=== PATIENT | female | born 1975 | race Caucasian/White ===

== ENCOUNTER 2018-07-28 16:00 | Observation (INO) ==
[2018-07-28] MEDS ORDERED: ASPIRIN 325 MG TABLET PO STA (16:43)
[2018-07-28] MEDS ORDERED: NITROGLYCERIN 2% OINT 1 INCH/GM PACK TOP STA (16:43)
[2018-07-28 16:50] LABS: Basophils # 0.1 10*3/uL (0.0-0.2); Basophils % 0.8 % (0.0-0.8); Eosinophils # 0.1 10*3/uL (0.0-0.87); Eosinophils % 1.4 % (0.00-10.9); Hematocrit 38.3 VOL% (35.7-47.0); Hemoglobin 13.3 GM/DL (12.0-16.0); Immature Granulocytes % 0.2 %; Immature Granulocytes Absolute 0.02 #; Lymphocytes # 3.7 10*3/uL (1.4-4.0); Lymphocytes % 40.1 % (21.3-54.2); Mean Corpuscular HGB Conc 34.7 GM/DL (32-36); Mean Corpuscular Hemoglobin 31 PG (27-34); Mean Corpuscular Volume 88.7 FL (87-102); Mean Platelet Volume 11.7 FL (9.6-12.0); Monocytes # 0.5 10*3/uL (0.11-0.8); Monocytes % 4.9 % (1.7-12.7); Neutrophils # 4.9 10*3/uL (1.4-7.4); Neutrophils % 52.6 % (38.7-73.9); Platelet Count 293 T/CUMM (130-400); Red Blood Count 4.32 MC/CUMM (3.8-5.5); Red Cell Distribution Width 12.9 % (9.3-17.3); White Blood Count 9.2 T/CUMM (4-12)
[2018-07-28 16:58] LABS: INR 0.9; PT Patient Result 10.3 SECS; Partial Thromboplastin Time 28.7 SECS (0-40)
[2018-07-28 17:08] LABS: Calcium 9.4 MG/DL (8.5-10.1); Osmolality,Calculated 275.1 MOS/KG (273-304)
[2018-07-28 17:26] LABS: Alanine Aminotransferase 23 U/L (13-56); Albumin 4.3 G/DL (3.4-5.0); Alkaline Phosphatase 88 U/L (45-117); Aspartate Amino Transferase 13 U/L (0-37); Bilirubin,Direct < 0.100 MG/DL (0.0-0.20); Bilirubin,Indirect 0.3 MG/DL (0.0-1.0); Bilirubin,Total < 0.39 MG/DL (0.2-1.0); Total Protein 8.5 G/DL (6.4-8.3)
[2018-07-28] MEDS ORDERED: ALPRAZolam 0.5 MG TABLET PO PRN (18:03)
[2018-07-28 18:31] LABS: Apearance,Urine CLEAR (Clear); Bilirubin,Urine Negative (Negative); Blood, Urine Small mg/dL (Negative); Glucose,Urine (UA) Negative (Negative); Hyaline Casts,Urine 1 /LPF (0-3); Ketones,Urine Negative (Negative); Nitrite,Urine Negative (Negative); Protein,Urine Negative; RBC,Urine 2 /HPF (0-4); Squamous Epithelial Cell,Urine Occasional /HPF (0-10); Transitional Epi Cells,Urine Occasional /HPF (<1); Urine Color Yellow (Yellow); Urine Urobilinogen < 2.0 EU/DL (0.2-1.0); WBC,Urine 3 /HPF (0-6)
[2018-07-28 18:35] LABS: Barbiturates Screen,Urine Negative (Negative); Benzodiazepines Screen,Urine Positive (Negative); Cannabinoid Screen,Urine Negative (Negative); Opiate Screen,Urine Negative (Negative); Phencyclidine Screen,Urine Negative (Negative)
[2018-07-28] MEDS ORDERED: INFLUENZA VIRUS VACCINE 0.5 ML SYRINGE IM ONE (19:27)
[2018-07-28] MEDS ORDERED: ONDANSETRON 4 MG/2 ML VIAL IV PRN (19:27)
[2018-07-28] MEDS ORDERED: ACETAMINOPHEN 325 MG TABLET PO PRN (19:27)
[2018-07-28] MEDS ORDERED: LACTULOSE 20 GM/30 ML UDCUP PO PRN (19:27)
[2018-07-28] MEDS: SODIUM CHLORIDE 0.9% 1,000 ML IV SCH (21:53)
[2018-07-28] MEDS: METOPROLOL SUCCINATE XL 25 MG TABLET PO SCH (21:53)
[2018-07-28] MEDS: ENOXAPARIN 40 MG/0.4 ML SYRINGE SUBCUT SCH (21:54)
[2018-07-28] MEDS: PANTOPRAZOLE 40 MG TABLET PO SCH (21:54)
[2018-07-28] MEDS: traZODone 50 MG TABLET PO SCH (21:54)
[2018-07-28] MEDS: POTASSIUM CHLORIDE 20 MEQ TABLET PO SCH (21:54)
[2018-07-29] MEDS: POTASSIUM CHLORIDE 20 MEQ TABLET PO SCH ×2 (02:05→05:10)
[2018-07-29 04:31] LABS: Blood Urea Nitrogen 26 MG/DL (7-18); Calcium 8.6 MG/DL (8.5-10.1); Glucose 100 MG/DL (74-106); Osmolality,Calculated 277.8 MOS/KG (273-304); Sodium 137 MMOL/L (136-145); Troponin I < 0.015 NG/ML (0.00-0.045)
[2018-07-29] MEDS: SODIUM CHLORIDE 0.9% 1,000 ML IV SCH ×3 (07:40→23:50)
[2018-07-29] MEDS ORDERED: POTASSIUM CHLORIDE 20 MEQ TABLET PO PRN (08:16)
[2018-07-29] MEDS ORDERED: TRIAMTERENE/HCTZ 37.5-25 MG TABLET PO SCH (09:00)
[2018-07-29] MEDS ORDERED: METOPROLOL SUCCINATE XL 50 MG TABLET PO SCH (09:00)
[2018-07-29] MEDS ORDERED: FUROSEMIDE 20 MG TABLET PO SCH (09:00)
[2018-07-29] MEDS ORDERED: METOPROLOL SUCCINATE XL 25 MG TABLET PO SCH (09:47)
[2018-07-29] MEDS ORDERED: NICOTINE 21 MG/24 HR PATCH TRANSDERM PRN (09:49)
[2018-07-29] MEDS: TOPIRAMATE 200 MG TABLET PO SCH (10:03)
[2018-07-29] MEDS: ESCITALOPRAM 10 MG TABLET PO SCH (10:03)
[2018-07-29] MEDS: POTASSIUM CHLORIDE 10 MEQ TABLET PO SCH (10:04)
[2018-07-29] MEDS: ASPIRIN CHEW 81 MG TABLET PO SCH (10:04)
[2018-07-29] MEDS: PANTOPRAZOLE 40 MG TABLET PO SCH ×2 (10:04→21:14)
[2018-07-29] MEDS ORDERED: POTASSIUM CHLORIDE 20 MEQ TABLET PO ONE (13:02)
[2018-07-29] MEDS ORDERED: SODIUM CHLORIDE 0.9% 500 ML IV ONE ×2 (15:27→16:30)
[2018-07-29] MEDS: traZODone 50 MG TABLET PO SCH (21:13)
[2018-07-29] MEDS: ENOXAPARIN 40 MG/0.4 ML SYRINGE SUBCUT SCH (21:14)
[2018-07-29] MEDS: METOPROLOL SUCCINATE XL 25 MG TABLET PO SCH (21:14)
[2018-07-30] MEDS: ESCITALOPRAM 10 MG TABLET PO SCH (08:38)
[2018-07-30] MEDS: PANTOPRAZOLE 40 MG TABLET PO SCH ×2 (08:38→20:21)
[2018-07-30] MEDS: POTASSIUM CHLORIDE 10 MEQ TABLET PO SCH (08:38)
[2018-07-30] MEDS: ASPIRIN CHEW 81 MG TABLET PO SCH (08:38)
[2018-07-30] MEDS: TOPIRAMATE 200 MG TABLET PO SCH (08:44)
[2018-07-30] MEDS ORDERED: METOPROLOL SUCCINATE XL 25 MG TABLET PO SCH (09:01)
[2018-07-30 10:32] LABS: Basophils # 0.1 10*3/uL (0.0-0.2); Basophils % 0.7 % (0.0-0.8); Eosinophils # 0.2 10*3/uL (0.0-0.87); Eosinophils % 1.8 % (0.00-10.9); Hematocrit 33.9 VOL% (35.7-47.0); Immature Granulocytes % 0.2 %; Immature Granulocytes Absolute 0.02 #; Lymphocytes # 3.8 10*3/uL (1.4-4.0); Lymphocytes % 45.1 % (21.3-54.2); Mean Corpuscular HGB Conc 32.4 GM/DL (32-36); Mean Corpuscular Hemoglobin 31 PG (27-34); Mean Corpuscular Volume 93.9 FL (87-102); Mean Platelet Volume 11.9 FL (9.6-12.0); Monocytes # 0.4 10*3/uL (0.11-0.8); Monocytes % 4.9 % (1.7-12.7); Neutrophils # 3.9 10*3/uL (1.4-7.4); Neutrophils % 47.3 % (38.7-73.9); Red Blood Count 3.61 MC/CUMM (3.8-5.5); Red Cell Distribution Width 13.1 % (9.3-17.3); White Blood Count 8.4 T/CUMM (4-12)
[2018-07-30 10:33] LABS: Platelet Count 226 T/CUMM (130-400)
[2018-07-30 10:56] LABS: Calcium 8.4 MG/DL (8.5-10.1); Osmolality,Calculated 288.1 MOS/KG (273-304); Potassium 3.3 MMOL/L (3.5-5.1)
[2018-07-30] MEDS: METOPROLOL SUCCINATE XL 25 MG TABLET PO SCH ×2 (11:45→20:23)
[2018-07-30] MEDS: SODIUM CHLORIDE 0.9% 1,000 ML IV SCH (14:22)
[2018-07-30] MEDS: traZODone 50 MG TABLET PO SCH (20:21)
[2018-07-30] MEDS: ENOXAPARIN 40 MG/0.4 ML SYRINGE SUBCUT SCH (20:22)
[2018-07-31] MEDS: SODIUM CHLORIDE 0.9% 1,000 ML IV SCH (03:00)
[2018-07-31 04:39] LABS: Basophils # 0.1 10*3/uL (0.0-0.2); Basophils % 0.7 % (0.0-0.8); Eosinophils # 0.2 10*3/uL (0.0-0.87); Eosinophils % 2.1 % (0.00-10.9); Hematocrit 32.1 VOL% (35.7-47.0); Hemoglobin 10.4 GM/DL (12.0-16.0); Immature Granulocytes % 0.2 %; Immature Granulocytes Absolute 0.02 #; Lymphocytes # 4.4 10*3/uL (1.4-4.0); Lymphocytes % 51.7 % (21.3-54.2); Mean Corpuscular HGB Conc 32.4 GM/DL (32-36); Mean Corpuscular Hemoglobin 30 PG (27-34); Mean Platelet Volume 11.2 FL (9.6-12.0); Monocytes # 0.4 10*3/uL (0.11-0.8); Monocytes % 4.3 % (1.7-12.7); Neutrophils # 3.5 10*3/uL (1.4-7.4); Platelet Count 222 T/CUMM (130-400); Red Blood Count 3.45 MC/CUMM (3.8-5.5); Red Cell Distribution Width 13.2 % (9.3-17.3); White Blood Count 8.5 T/CUMM (4-12)
[2018-07-31 05:06] LABS: Calcium 8.6 MG/DL (8.5-10.1); Osmolality,Calculated 288.8 MOS/KG (273-304); Potassium 3.6 MMOL/L (3.5-5.1)
[2018-07-31 08:16] VITALS: BP 99/53
[2018-07-31] MEDS: ESCITALOPRAM 10 MG TABLET PO SCH (09:04)
[2018-07-31] MEDS: ASPIRIN CHEW 81 MG TABLET PO SCH (09:04)
[2018-07-31] MEDS: TOPIRAMATE 200 MG TABLET PO SCH (09:04)
[2018-07-31] MEDS: POTASSIUM CHLORIDE 10 MEQ TABLET PO SCH (09:04)
[2018-07-31] MEDS: PANTOPRAZOLE 40 MG TABLET PO SCH (09:04)
[2018-07-31] MEDS: METOPROLOL SUCCINATE XL 25 MG TABLET PO SCH (09:05)
[2018-07-31 10:25] LABS: Risk Ratio 5.88; VLDL CHOLESTEROL 63.4 MG/DL
[2018-07-31] MEDS ORDERED: ATORVASTATIN 20 MG TABLET PO SCH (21:00)
[2018-08-04] MEDS ORDERED: ERGOCALCIFEROL 50,000 UNIT CAPSULE PO SCH (09:00)
== END 2018-07-31 11:25 | disposition home or self-care (01) ==
LOC: N.EDINP 16:00 → N.ED 16:00 → N.TELEN 18:44
PROVIDERS: ADMIT Internal Medicine; ATTEND Internal Medicine

== ENCOUNTER 2022-01-21 16:27 | Observation (INO) ==
[2022-01-21] MEDS ORDERED: SODIUM CHLORIDE 0.9% 500 ML IV STA (19:27)
[2022-01-21] MEDS ORDERED: ONDANSETRON 4 MG/2 ML VIAL IV STA (20:21)
[2022-01-21] MEDS ORDERED: SODIUM CHLORIDE 0.9% 1,000 ML IV STA (20:21)
[2022-01-21 20:24] LABS: Basophils # 0.1 10*3/uL (0.0-0.2); Basophils % 0.7 % (0.0-0.8); Eosinophils # 0.2 10*3/uL (0.0-0.87); Eosinophils % 1.7 % (0.00-10.9); Hematocrit 40.5 VOL% (35.7-47.0); Hemoglobin 13.7 GM/DL (12.0-16.0); Immature Granulocytes % 0.3 %; Immature Granulocytes Absolute 0.03 #; Lymphocytes # 4.7 10*3/uL (1.4-4.0); Lymphocytes % 40.5 % (21.3-54.2); Mean Corpuscular HGB Conc 33.8 GM/DL (32-36); Mean Corpuscular Volume 91.2 FL (87-102); Mean Platelet Volume 11.4 FL (9.6-12.0); Monocytes # 0.5 10*3/uL (0.11-0.8); Monocytes % 4.6 % (1.7-12.7); Neutrophils % 52.2 % (38.7-73.9); Platelet Count 240 T/CUMM (130-400); Red Blood Count 4.44 MC/CUMM (3.8-5.5); Red Cell Distribution Width 13.6 % (9.3-17.3); White Blood Count 11.6 T/CUMM (4-12)
[2022-01-21 20:37] LABS: Lactic Acid 0.9 MMOL/L (0.4-2.0)
[2022-01-21] MEDS ORDERED: KETOROLAC 30 MG/1 ML VIAL IV STA (20:45)
[2022-01-21 20:46] LABS: Alanine Aminotransferase 22 U/L (13-56); Albumin 4.2 G/DL (3.4-5.0); Alkaline Phosphatase 64 U/L (45-117); Aspartate Amino Transferase 13 U/L (0-37); Bilirubin,Total < 0.39 MG/DL (0.20-1.00); Blood Urea Nitrogen 16 MG/DL (7-18); Calcium 9.4 MG/DL (8.5-10.1); Carbon Dioxide 22 MMOL/L (21-32); Chloride 111 MMOL/L (98-107); Glucose 89 MG/DL (74-106); Osmolality,Calculated 278.4 MOS/KG (273-304); Potassium 3.5 MMOL/L (3.5-5.1); Sodium 140 MMOL/L (136-145); Total Protein 8.3 G/DL (6.4-8.2)
[2022-01-21 20:59] LABS: Mucus,Urine Occasional /LPF (Occasional); RBC,Urine 4 /HPF (0-4); Squamous Epithelial Cell,Urine Occasional /HPF (0-10)
[2022-01-21 21:01] LABS: Bilirubin,Urine Negative (Negative); Blood, Urine Trace mg/dL (Negative); Glucose,Urine (UA) Negative (Negative); Ketones,Urine Negative (Negative); Nitrite,Urine Negative (Negative); Protein,Urine Negative (Negative); Urine Appearance Clear (Clear); Urine Color Yellow (Yellow); Urine Urobilinogen 0.2 eU/dL (<2.0); Urine pH 6.5 (4.5-8.0)
[2022-01-21 21:06] LABS: Barbiturates Screen,Urine Negative (Negative); Benzodiazepines Screen,Urine Positive (Negative); Cannabinoid Screen,Urine Negative (Negative); Opiate Screen,Urine Negative (Negative); Phencyclidine Screen,Urine Negative (Negative)
[2022-01-21] MEDS ORDERED: diphenhydrAMINE CAP 25 MG CAPSULE PO PRN (22:02)
[2022-01-21] MEDS ORDERED: ACETAMINOPHEN 325 MG TABLET PO PRN (22:02)
[2022-01-21] MEDS ORDERED: hydrALAZINE 20 MG/1 ML VIAL IV PRN (22:02)
[2022-01-21] MEDS ORDERED: ONDANSETRON 4 MG/2 ML VIAL IV PRN (22:02)
[2022-01-21] MEDS ORDERED: guaiFENesin/DM ER 600-30 MG TABLET PO PRN (22:02)
[2022-01-21] MEDS ORDERED: DEXTROSE 10% 250 ML BAG IV PRN (22:06)
[2022-01-21] MEDS ORDERED: cefTRIAXone 1,000 MG in SODIUM CHLORIDE 0.9% 100 ML IV STA (22:10)
[2022-01-22] MEDS: SODIUM CHLORIDE 0.9% 1,000 ML IV SCH ×2 (00:20→11:35)
[2022-01-22 03:53] LABS: Basophils # 0.1 10*3/uL (0.0-0.2); Basophils % 0.7 % (0.0-0.8); Eosinophils # 0.2 10*3/uL (0.0-0.87); Eosinophils % 2.1 % (0.00-10.9); Hematocrit 37.3 VOL% (35.7-47.0); Hemoglobin 12.5 GM/DL (12.0-16.0); Immature Granulocytes % 0.3 %; Immature Granulocytes Absolute 0.03 #; Lymphocytes # 5.1 10*3/uL (1.4-4.0); Lymphocytes % 47.2 % (21.3-54.2); Mean Corpuscular HGB Conc 33.5 GM/DL (32-36); Mean Corpuscular Volume 92.6 FL (87-102); Mean Platelet Volume 11.7 FL (9.6-12.0); Monocytes # 0.6 10*3/uL (0.11-0.8); Monocytes % 5.2 % (1.7-12.7); Neutrophils % 44.5 % (38.7-73.9); Platelet Count 210 T/CUMM (130-400); Red Blood Count 4.03 MC/CUMM (3.8-5.5); Red Cell Distribution Width 13.4 % (9.3-17.3); White Blood Count 10.8 T/CUMM (4-12)
[2022-01-22 04:03] LABS: Calcium 8.6 MG/DL (8.5-10.1); Osmolality,Calculated 279.4 MOS/KG (273-304); Potassium 3.5 MMOL/L (3.5-5.1)
[2022-01-22] MEDS: ASPIRIN CHEW 81 MG TABLET PO SCH (11:33)
[2022-01-22] MEDS: METOPROLOL SUCCINATE XL 50 MG TABLET PO SCH ×2 (11:34→20:39)
[2022-01-22] MEDS: DOCUSATE SODIUM 100 MG CAPSULE PO SCH ×2 (11:34→20:40)
[2022-01-22] MEDS: HEPARIN 5,000 UNIT/1 ML VIAL SUBCUT SCH (11:34)
[2022-01-22] MEDS: PANTOPRAZOLE 40 MG TABLET PO SCH (11:34)
[2022-01-22] MEDS: BISACODYL 5 MG TABLET PO SCH (11:34)
[2022-01-22] MEDS ORDERED: ALPRAZolam 0.5 MG TABLET PO SCH (21:00)
[2022-01-23] MEDS: HEPARIN 5,000 UNIT/1 ML VIAL SUBCUT SCH ×2 (02:19→08:48)
[2022-01-23] MEDS: METOPROLOL SUCCINATE XL 50 MG TABLET PO SCH (08:46)
[2022-01-23] MEDS: PANTOPRAZOLE 40 MG TABLET PO SCH (08:46)
[2022-01-23] MEDS: ASPIRIN CHEW 81 MG TABLET PO SCH (08:46)
[2022-01-23] MEDS: BISACODYL 5 MG TABLET PO SCH (08:47)
[2022-01-23] MEDS: DOCUSATE SODIUM 100 MG CAPSULE PO SCH (08:47)
[2022-01-23] MEDS ORDERED: CYANOCOBALAMIN 500 MCG TABLET PO SCH (09:00)
[2022-01-23] MEDS ORDERED: CHOLECALCIFEROL 400 UNIT TABLET PO SCH (09:00)
[2022-01-23] MEDS: SODIUM CHLORIDE 0.9% 1,000 ML IV SCH ×2 (10:07→10:39)
[2022-01-23 11:42] VITALS: BP 146/70
== END 2022-01-23 15:11 | disposition home or self-care (01) ==
LOC: N.EDINP 16:27 → N.ED 16:27 → SUATTDRO 22:02 → N.3E 01-22 13:42
PROVIDERS: ADMIT Internal Medicine; ATTEND Family Medicine